=== PATIENT | male | born 1960 | race Caucasian/White ===

== ENCOUNTER 2017-05-23 22:31 | Inpatient (IN) | payer BC ==
--- NOTE | 2017-05-23 22:52 | ERNOTE ---
Abdominal HPI - General Chief Complaint: Abdominal Pain Time Seen by Provider: 05/23/17 22:42 Source: patient Exam Limitations: no limitations - Immun/Allergies/Home Medications Immunizatons: IMMUNIZATION HX Immunizations Up to Date Yes History of Influenza Vaccine Yes Hx Pneumococcal Vaccination Yes Allergies/Adverse Reactions: Allergies No Known Allergies Allergy (Unverified 05/23/17 22:38) Home Medications: HOME MEDICATIONS Omeprazole 40 mg PO DAILY 05/24/17 [Last Taken 05/23/17] - History of Present Illness Narrative: Pt had onset of abdominal pain over the weekend and was seen in the [place] [facility]. He had an abdominal u/s that showed gallbladder wall thickening and gallstone. He had increase in pain and an EGD was done yesterday showing esophagitis and a laith-carolina tear at the GEJ. He was placed on protonix and sent home with follow up for his gallbladder scheduled. Today he had increase in pain and presented to [place] ED. CT there showed cholecystitis with pericholecystic stranding and 4.[address] Graham from [place] [facility] contacted me requesting transfer. I contacted Dr. Obando and after getting the CT reading he agreed to accept the patient in transfer. Pt was transported her by [facility]. Timing: constant Quality: moderate Activities at Onset: none Modifying Factors - (Improves): Present: analgesics Modifying Factors - (Worsens): Present: eating Associated Symptoms: Present: nausea, vomiting Prior Abdominal Problems: Present: none Prior Treatment: Present: recently seen, treated by physician Review of Systems - Review of Systems Constitutional: Present: fatigue EYE: Present: no symptoms reported ENT: Present: no symptoms reported Respiratory: Absent: shortness of breath Cardiology: Absent: chest pain Gastrointestinal/Abdominal: Present: See HPI, eating less Genitourinary: Present: no symptoms reported Musculoskeletal: Present: no symptoms reported Skin: Present: no symptoms reported Neurological: Present: no symptoms reported Endocrine: Present: excessive sweating Hematologic/Lymphatic: Present: no symptoms reported Psych: Present: no symptoms reported - Patient's Past Medical History Patient History - Medical: No pertinent hx Patient History - Cardiac/Respiratory: No pertinent hx Patient History - Cancer: No Hx of Cancer Patient History - Surgical Procedures: Other Patient History - Other: None - Family History Mother Family History - Medical: Family History - Cardiac/Respiratory: CHF Father Family History - Medical: Family History - Cardiac/Respiratory: Myocardial Infarction - Social History Living Situations: home Psych History: No pertinent hx Smoking Status: Light tobacco smoker Alcohol Use: none Drug Use: none - Immunizations Immunizations Up to Date: Yes Hx Pneumococcal Vaccination: Yes History of Influenza Vaccine: Yes Physical Exam - Physical Exam General Appearance: Present: wd/wn, alert, no apparent distress Head Exam: Present: normal inspection, no evidence of injury Neck: Present: normal inspection, nontender Respiratory: Present: no respiratory distress, no accessory muscle use, lungs clear Cardiovascular/Chest: Present: regular rate, rhythm, no murmur Gastrointestinal/Abdominal: Present: soft, tenderness - epigastric and RUQ , abnormal bowel sounds - hypoactive. Absent: distended, guarding, rebound Extremity Exam: Present: normal inspection, normal range of motion Neurological Exam: Present: alert, oriented, normal mood/affect, no motor/ sensory deficits Skin Exam: Present: normal color, warm/dry Lymphatic Exam: Present: no adenopathy ED Progress - Vital Signs Patient's Vital Signs:: I have reviewed the patient's vital signs. Vital Signs: Vital Signs 05/23/17 22:32 Temperature 36.5 C Pulse Rate 78 Respiratory 14 Rate Blood Pressure 152/97 O2 Sat by Pulse 100 Oximetry - Progress/Reassessment Chief Complaint: Abdominal Pain Progress Note-Subjective: 05/23/17 22:[address] Obando he will come see the patient in the ED. Dr. Obando saw the patient in the ED and admitted the patient to med/surg. Departure Clinical Impression: Acute calculous cholecystitis - Departure Disposition: [facility] Condition: Fair
[2017-05-23] MEDS ORDERED: MORPHINE SULFATE 4 MG/ML SYRG IV PRN (23:56)
[2017-05-23] MEDS ORDERED: oxyCODONE HCL/ACETAMINOPHEN 1 TAB TABLET PO PRN (23:56)
[2017-05-23] MEDS ORDERED: ONDANSETRON HCL/PF 2 MG/ML VIAL IV PRN (23:56)
[2017-05-24] MEDS ORDERED: METOCLOPRAMIDE HCL 5 MG/ML VIAL IV ONE (00:02)
[2017-05-24] MEDS ORDERED: PANTOPRAZOLE SODIUM 40 MG/100 ML PIGGYBACK IV ONE (00:17)
[2017-05-24] MEDS ORDERED: PHENTOLAMINE MESYLATE 5 MG/ML VIAL ONE (00:18)
[2017-05-24] MEDS: PANTOPRAZOLE SODIUM 40 MG in NORMAL SALINE 100 ML IV SCH (00:28)
[2017-05-24] MEDS: RINGER'S SOLUTION,LACTATED 1,000 ML IV PRN ×4 (01:27→23:29)
[2017-05-24] MEDS: CEFOXITIN SODIUM 2 GM in DEXTROSE 5 % IN WATER 100 ML IV SCH ×6 (01:43→16:15)
[2017-05-24] MEDS ORDERED: MORPHINE SULFATE 2 MG/ML DISP.SYRIN IV PRN (07:17)
--- NOTE | 2017-05-24 08:01 | HP ---
Chief Complaint - Chief Complaint Date of Service: 05/23/17 Time of Service: 22:45 Chief Complaint: CHOLELITHIASIS AND CHOLECYSTITIS History of Present Illness: He started having pain suddenly on 05/18/2017. The pain was epigastric and right upper quadrant in location. It came on suddenly and became quite intense. He had multiple episodes of vomiting. The pain went away after several hours. He felt okay on 05/19/2017 and 05/20/2017 but he was eating less. On 05/21/2017 his pain returned, he also developed coffee-ground emesis, and he presented to the emergency room at [facility] where he was found to have a heme positive stool. Gallbladder ultrasound revealed thickened wall and stone. He was given Protonix and scheduled for an EGD which was performed on 05/22/2017. He was found to have a superficial gastric erosion. A healing Pili-Canchola tear. He was given a prescription for omeprazole and scheduled to see Dr. Davis in [place] next week for follow-up. This afternoon his pain returned, became severe, so he went to the emergency room at [facility] again. CBC and liver function studies, amylase/lipase are within normal limits. CT scan of the abdomen demonstrates acute cholecystitis with a large gallstone. There is no surgeon at that institution so he was transferred here for further care. He has never had pain of this nature before. There is no family history of gallbladder disease. He does not see a physician regularly and takes no regular medications. - Patient's Past Medical History Patient History - Medical: No pertinent hx Patient History - Cardiac/Respiratory: No pertinent hx Patient History - Cancer: No Hx of Cancer Patient History - Surgical Procedures: Other Patient History - Other: None - Family History Mother Family History - Medical: Family History - Cardiac/Respiratory: CHF Father Family History - Medical: Family History - Cardiac/Respiratory: Myocardial Infarction - Social History Living Situations: home Psych History: No pertinent hx Smoking Status: Light tobacco smoker Have you smoked in the past 12 months: Yes Alcohol Use: none Drug Use: none - Immunizations Immunizations Up to Date: Yes Hx Pneumococcal Vaccination: Yes History of Influenza Vaccine: Yes Review Of Systems (GEN) - Review of Systems Generalized/Overall Review: Present: Weakness. Absent: Chills, Fever EENTM: Present: Other - Dry mouth Respiratory: Absent: Cough, Shortness of Breath Cardiac: Present: Other - He has not had an EKG for about 6 years. He walks a lot and can perform daily chores and activities and go hunting without any chest pain. 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 Neurological: Present: No Symptoms Reported Skin: Present: No Symptoms Reported Immunizations: IMMUNIZATION HX Immunizations Up to Date Yes History of Influenza Vaccine Yes Hx Pneumococcal Vaccination Yes Allergies/Adverse Reactions: Allergies Allergy/AdvReac Type Severity Reaction Status Date / Time No Known Allergies Allergy Unverified 05/23/17 22:38 Home Medications: HOME MEDICATIONS RX: Omeprazole 40 mg PO DAILY 05/24/17 [Last Taken 05/23/17] Exam - Exam Vital Signs: Vital Signs - Last Taken Temp 36.8 C 05/24/17 01:09 Pulse 83 05/24/17 01:09 Resp 18 05/24/17 01:09 BP 163/83 05/24/17 01:09 Pulse Ox 99 05/24/17 01:09 Constitutional: Present: Alert, Oriented x3, Cooperative, Well nourished, Moderate distress ENT Exam: Present: normal ENT inspection, other - Mallampati 4 airway Eye Exam: bilateral eye: normal inspection Neck: Present: full range of motion, normal inspection Respiratory: Present: normal breath sounds, no respiratory distress Cardiovascular/Chest: Present: normal peripheral pulses, regular rate, rhythm, no murmur Peripheral Pulses: dorsalis-pedis (R): 4+, dorsalis-pedis (L): 4+, radial (R): 4 +, radial (L): 4+ Abdomen: Present: other - Soft, right upper quadrant tenderness without guarding or rebound Skin Exam: Present: diaphoresis Neurologic: Present: beater out II-XII nml as tested, no motor/sensory deficits Appearance: Present: appropriate appearance, appropriate insight Eye contact: Present: cooperative, good eye contact, normal speech Thoughts: Present: normal thought pattern Diagnostic Studies: Lab reports from [facility] OR on the scan ER record. EKG in the emergency room here is normal. CT scan and ultrasound from [facility] have been imported. Assessment/Plan - Assessment/Plan (1) Acute calculous cholecystitis Assessment: A pamphlet on gallbladder disease and gallbladder surgery was reviewed with him and his and given to them. The benefits, risks, and possible complications of gallbladder surgery were outlined including the possibility of open operation. The patient will be placed in acute care with SCDs for VTE prophylaxis, IV antibiotics, IV fluids, and chlorhexidine wipes preop. Tentatively scheduled for cholecystectomy later today. Problem: Acute
[2017-05-24] MEDS ORDERED: FLU VACC QS2017-18(6MOS UP)/PF 60 MCG/0.5 ML SYRINGE IM ONE (09:00)
[2017-05-24] MEDS ORDERED: RINGER'S SOLUTION,LACTATED 1,000 ML IV ONE ×5 (10:45→14:30)
[2017-05-24] MEDS ORDERED: ceFAZolin SODIUM 1 GM VIAL IV ONE ×2 (11:15)
[2017-05-24] MEDS ORDERED: BUPIVACAINE HCL/EPINEPHRINE 50 ML VIAL IJ ONE ×2 (11:20)
[2017-05-24] MEDS ORDERED: MUPIROCIN 22 APPL TUBE TP ONE (15:05)
[2017-05-24] MEDS ORDERED: HYDROmorphone HCL IN 0.9% NACL 50 ML CARTRIDGE IV PRN (15:33)
[2017-05-24] MEDS ORDERED: BISACODYL 5 MG TABLET.DR PO ONE (19:07)
[2017-05-24] MEDS ORDERED: BISACODYL 10 MG SUPP.RECT RC ONE (19:07)
--- NOTE | 2017-05-24 19:07 | OR ---
Operative Report - Dictated Report Narrative: OPERATIVE REPORT DATE OF OPERATION: 05/24/2017 PREOPERATIVE DIAGNOSIS: Cholelithiasis and acute cholecystitis POSTOPERATIVE DIAGNOSIS: Severe, gangrenous acute cholecystitis with cholelithiasis OPERATION: Attempted laparoscopic converted to open cholecystectomy. (Subtotal removal of the gallbladder with removal of single large gallstone and oversewing the gallbladder stump) SURGEON: Escobar Obando MD ANESTHESIA: GenPriyanka David CRNA INDICATIONS FOR PROCEDURE: The patient is a 57-year-old male who began having right upper quadrant abdominal pain on 05/18/2017. He was seen in the emergency room at [facility] on 05/21/2017 where he was found to have gallstones on ultrasound. He was sent home and had an EGD at [facility] on 05/22/2017 with the findings of gastric erosions and healing Pili-Canchola tear. He was started on omeprazole and scheduled for follow-up with a local physician next week. On however 05/23/2017 he returned to the emergency room at [facility] with worse pain. A CT scan revealed acute cholecystitis with a large gallstone. CBC and liver function studies, amylase/lipase were normal. There is no surgeon at that facility. He was transferred here for further care. FINDINGS: Severe gangrenous acute cholecystitis with single large gallstone. Severe inflammation precluding safe laparoscopic removal of the gallbladder and necessitating conversion to open procedure. Successful removal of the majority of the gallbladder and single large stone with oversewing of the gallbladder neck. Extremely difficult operation lasting from 1120 through 1505 NARRATIVE OF PROCEDURE: The patient was identified preoperatively and prior to the administration of anesthetic a multidisciplinary timeout was observed. The patient was placed supine, SCDs applied, and 2 g of intravenous Ancef administered. General endotracheal anesthetic was administered. The patient's abdomen was prepped with Betadine solution and a generous operating field outlined with 4 sterile towels so as to allow conversion to open operation if needed. The remainder the patient was covered with a sterile disposable drape. A transverse infraumbilical skin incision was made. Dissection was carried along the umbilical stalk until the fascia of the linea alba was identified. This was elevated and incised. The peritoneum was then elevated and incised to allow entry into the abdomen under direct vision. Stay sutures of 0 Vicryl were placed, a Velazquez cannula inserted, and the abdomen insufflated with CO2. The laparoscopic camera was introduced and the abdomen briefly explored. There was adherent omentum over the dome of the right lobe of the liver in the expected location of the gallbladder. The liver itself appeared grossly normal. Those portions of the stomach, colon, omentum, and small bowel visualized appeared normal. Next under direct vision 3 additional working ports were inserted through separate skin incisions, one subxiphoid and one in the right upper quadrant and one in the right flank. The omentum over the right lobe of the liver was gradually retracted inferiorly, however was densely adherent to the expected location of the fundus of the gallbladder. The omentum was approached laterally and medially and, with the use of forceps and hydrostatic dissection, the tip of a frankly necrotic gallbladder exposed. The dense adhesions precluded further development of the gallbladder and decision was made to convert to open operation. Points were located by palpation to allow marking the incision site on the anterior abdominal wall to provide best exposure. The working ports were then withdrawn under direct vision to ensure entry site hemostasis. The Velazquez cannula was removed and the pneumoperitoneum allowed to escape. The Vicryl sutures at the umbilicus were tied and the skin incisions were approximated with interrupted vertical mattress sutures of 4-0 nylon. The right upper quadrant entry site was left open for anticipated drain placement. A right subcostal skin incision was then made where previously marked and dissection carried through subcutaneous tissue until the fascia of the anterior rectus sheath was encountered. The rectus muscle was then elevated over a clamp and divided with electrocautery. The posterior rectus sheath and peritoneum were then incised to allow entry into the abdomen under direct vision. A Bookwalter self-retaining retractor was placed. A plane could be developed by blunt dissection around the inflamed gallbladder down to below the large stone. The tissue was necrotic and very malodorous. The inflammation at the gallbladder neck was very severe with dense adhesions to the duodenum. Previously an nasogastric tube had not been placed due to the patient's history of healing Pili-Canchola tear, however distention of the stomach and duodenum interfered with exposure so a nasogastric tube was placed without difficulty into the stomach and positioned by direct palpation with resulting decompression of the stomach and the duodenum. Even with this increased exposure, the dense adhesions between the stomach, duodenum and neck of the gallbladder precluded further safe dissection. Accordingly the gallbladder was opened and the stone was delivered along with a large amount of clotted blood and malodorous material. Even under direct vision from within the gallbladder the distal portion of the gallbladder neck and cystic duct could not be safely dissected. The necrotic gallbladder was then amputated at the level of the neck. The cystic artery was encountered at this juncture and required direct pressure and then clipping under direct vision to secure the vessel. The area was irrigated with warm saline and was seen to be hemostatic. There was no evidence of bile leaking from the interior of the gallbladder neck indicating cystic duct obstruction. The area was again copiously irrigated with warm saline and carefully inspected. Again there was no evidence of bile leak from either the liver bed or the stump of the gallbladder neck and the area was hemostatic. There was a denuded area of the duodenal sweep. This was oversewn with inverting serosal sutures of 4-0 Vicryl which were additionally reinforced with an additional layer of inverting 4-0 Vicryl sutures and then covered with omentum. The right upper quadrant and area over the liver was again irrigated with warm saline and suctioned clean with confirmation of hemostasis and no evidence of bile leak. The previously bluntly dissected omentum was replaced over the liver bed and after receiving a correct sponge needle and instrument count attention was turned to closing the abdomen. A 7 Icelandic round Fabian- Watts drain was placed along the gallbladder fossa with care to avoid direct connection to the neck of the gallbladder or duodenum. It was brought out through the right upper quadrant port site and secured to the skin with a 2-0 nylon suture. The peritoneum was then approximated with a running suture of 20 antibiotic-containing Vicryl. The posterior rectus sheath was approximated with interrupted sutures of 0 Vicryl. The anterior rectus sheath was approximated with interrupted sutures of 0 Vicryl. The skin was secured with alexsander. The operative sites were washed and dried. The right lateral port site was dressed with mupirocin ointment and a large Band-Aid. The umbilical incision was dressed with mupirocin ointment, 2 x 2's, and Medipore tape. The subcostal incision, subxiphoid port site, and DARREL drain site were dressed with mupirocin ointment, 4 x 4's and Medipore tape. The operative procedure was terminated at this point. The patient tolerated the anesthetic and procedure well without complication. He received 3600 mL of IV fluids. A Palomo catheter was placed and there was 250 mL urine produced. The gallbladder and stone were submitted to pathology. 0.5% Marcaine with epinephrine was used for local anesthetic infiltration. The patient was transferred to the recovery room awake , extubated, and in stable condition. Reviewed and electronically signed
[2017-05-25] MEDS: PANTOPRAZOLE SODIUM 40 MG in NORMAL SALINE 100 ML IV SCH (02:12)
[2017-05-25] MEDS: CEFOXITIN SODIUM 2 GM in DEXTROSE 5 % IN WATER 100 ML IV SCH ×6 (02:43→17:04)
[2017-05-25 05:58] LABS: Mean Cell Volume 89.2 fl (78-100); Mean Corpuscular Hemoglobin 30.5 pg (27-31); Mean Corpuscular Hgb Conc 34.2 g/dl (32-36); Mean Platelet Volume 8.9 fl (6.0-9.5); Platelet Count 146 K/mm3 (150-450); Red Blood Count 2.49 M/mm3 (4.7-6.0); Red Cell Distribution Width 13.5 % (11.5-14.0); White Blood Count 8.6 K/mm3 (4.0-10.5)
[2017-05-25 06:12] LABS: Albumin * 2.2 gm/dl (3.4-5.0); Anion Gap 8.6 mmol/L (6.8-13.8); BUN/Creatinine Ratio 7.9 (9.0-21.6); Bilirubin, Total 0.6 mg/dL (0.0-1.1); Ca. Corrected For Albumin 8.9 mg/dL (8.4-10.2); Calcium * 7.8 mg/dL (7.9-10.9); Carbon Dioxide 28.4 mmol/L (24-32.6); Total Protein 5.3 gm/dL (6.2-8.2)
[2017-05-25 06:39] LABS: Hematocrit 22.2 % (42.0-52.0); Hemoglobin 7.6 gm/dL (13.5-18.0); Total Cells Counted 100
[2017-05-25 06:41] LABS: Band 5 % (0-2.0); Lymphocyte 11 % (20-51); Monocyte 1 % (0-9); Neutrophil 83 % (42-75); Neutrophil # 7.1 K/mm3 (1.3-6.0); Platelet Estimate Normal (NORMAL); RBC Morphology Normal (NORMAL)
[2017-05-25] MEDS: RINGER'S SOLUTION,LACTATED 1,000 ML IV PRN ×2 (07:02→14:16)
--- NOTE | 2017-05-25 17:57 | PN ---
Dictated Progress Note - Date and Time Seen: Date: 05/25/17 Time: 17:55 - 2nd visit - Progress Note Narrative: Vital Signs - Last Taken Temp 36.8 C 05/25/17 10:54 Pulse 101 H 05/25/17 10:54 Resp 18 05/25/17 10:54 BP 112/63 05/25/17 10:54 Pulse Ox 95 05/25/17 13:38 Abnormal/Pending Laboratory Last 24 HRS 05/25/17 05/25/17 05:25 05:25 RBC 2.49 L Hgb 7.6 L* Hct 22.2 L* Plt Count 146 L Neutrophils % (Manual) 83 H Band Neuts % (Manual) 5 H Lymphocytes % (Manual) 11 L Neutrophils # (Manual) 7.1 H Lymphocytes # (Manual) 0.9 L Est GFR (Non-Af Amer) 55 L BUN/Creatinine Ratio 7.9 L Calcium 7.8 L Alkaline Phosphatase 42 L Total Protein 5.3 L Albumin 2.2 L POD#1 Open cholecystectomy VS stable. Pain tolerable. DARREL output decreasing. Has been OOB. Dressing dry. Not much from NG Will cycle clamp NG with clear liquid trial, decrease IVF's Encourage pulmonary toilet
[2017-05-25] MEDS ORDERED: oxyCODONE HCL/ACETAMINOPHEN 1 TAB TABLET PO PRN (21:48)
[2017-05-26] MEDS: CEFOXITIN SODIUM 2 GM in DEXTROSE 5 % IN WATER 100 ML IV SCH ×6 (00:29→16:07)
[2017-05-26] MEDS: RINGER'S SOLUTION,LACTATED 1,000 ML IV PRN (00:32)
[2017-05-26] MEDS: PANTOPRAZOLE SODIUM 40 MG in NORMAL SALINE 100 ML IV SCH (01:00)
[2017-05-26 13:23] LABS: Mean Cell Volume 88.6 fl (78-100); Mean Corpuscular Hemoglobin 30.6 pg (27-31); Mean Corpuscular Hgb Conc 34.5 g/dl (32-36); Mean Platelet Volume 8.3 fl (6.0-9.5); Platelet Count 157 K/mm3 (150-450); Red Blood Count 2.29 M/mm3 (4.7-6.0); Red Cell Distribution Width 13.1 % (11.5-14.0); White Blood Count 10.4 K/mm3 (4.0-10.5)
[2017-05-26 13:32] LABS: Hematocrit 20.3 % (42.0-52.0)
[2017-05-26 13:33] LABS: Total Cells Counted 100
[2017-05-26 13:52] LABS: Lymphocyte 8 % (20-51); Monocyte 10 % (0-9); Neutrophil 82 % (42-75); Neutrophil # 8.5 K/mm3 (1.3-6.0)
[2017-05-26 13:53] LABS: Platelet Estimate Normal (NORMAL); RBC Morphology Normal (NORMAL)
--- NOTE | 2017-05-26 17:59 | PN ---
Dictated Progress Note - Date and Time Seen: Date: 05/26/17 Time: 17:58 - Progress Note Narrative: Vital Signs - Last Taken Temp 37.2 C 05/26/17 17:45 Pulse 94 05/26/17 17:45 Resp 14 05/26/17 17:45 BP 116/68 05/26/17 17:45 Pulse Ox 99 05/26/17 17:45 Abnormal/Pending Laboratory Last 24 HRS 05/26/17 05/26/17 13:15 13:15 RBC 2.29 L Hgb 7.0 L* Hct 20.3 L* Neutrophils % (Manual) 82 H Lymphocytes % (Manual) 8 L Monocytes % (Manual) 10 H Neutrophils # (Manual) 8.5 H Lymphocytes # (Manual) 0.8 L Crossmatch See Detail POD#2 open cholecystectomy for severe acute cholecystitis with cholelithiasis VS normal, single elevation of temp after pain med/laying down. Minimal NG output and tolerated trial clamp. Has been OOB. DARREL output decreasing. Dressings dry. Pain is controlled. Hgb did decline 7.6 to 7.0 and given lower Sa02's and unknown coronary status will transfuse. Encourage pulmonary toilet. Hold to liquids today.
[2017-05-27] MEDS: PANTOPRAZOLE SODIUM 40 MG in NORMAL SALINE 100 ML IV SCH (00:44)
[2017-05-27 00:55] LABS: Hematocrit 24.1 % (42.0-52.0); Hemoglobin 8.3 gm/dL (13.5-18.0)
[2017-05-27] MEDS: CEFOXITIN SODIUM 2 GM in DEXTROSE 5 % IN WATER 100 ML IV SCH ×4 (01:04→09:47)
[2017-05-27 11:23] VITALS: BP 138/78
--- NOTE | 2017-05-27 12:42 | DS ---
(1) Acute calculous cholecystitis Problem: Resolved Description of Stay: He underwent laparoscopic, converted to open cholecystectomy for severe acute cholecystitis with single large stone. Reviewved pre and ost op Mefoxin and SCD' s/early ambulation for VTE prophylaxis. Lovenox not used due to bleeding concerns. NG tube and RUQ DARREL drain placed. Initially had armas catheter for U/O monitoring.VS remained normal. Minimal NG and DARREL output. tolerated trial clamping of NG and it was removed with diet advancement. Pain initially controlled with MEAL COOK then po Percocet. Received 2 units of PRBC's due to fall in Hgb with symptoms and unknown coronary status. By POD #2 he was on regular diet and OOB without assist. DARREL removed. Incisions clean and healing, and his was instructed on dressing changes. Home, no lifting with phone #'s to call for questions or concerns and office appointment will be made for 06/04/17. Procedures Performed: none - laparoscopic, converted to open cholecystectomy Discharge Disposition: Home self care Disposition: Home self-care Condition: Good Discharge Activity: Activity as tolerated, No Lifting Discharge Diet: General/regular food Problem Oriented Discharge Instructions to Patient/Family: Open Cholecystectomy Complete Home Medications List: Complete Home Medication List: Omeprazole 40 mg PO DAILY 05/24/17 oxyCODONE HCL/ACETAMINOPHEN [Percocet 5 MG/325 MG] 1 tab PO Q4H PRN 7 Days #30 tablet 05/27/17
[2017-05-27] MEDS ORDERED: PANTOPRAZOLE SODIUM 40 MG in NORMAL SALINE 100 ML IV SCH (23:45)
== END 2017-05-27 13:30 | disposition home or self-care (01) | DRG 416 ==
LOC: ER 22:31 → MS 23:38 → UNDOADMIN 05-24 00:28 → MS 05-24 00:28 → UNDOADMIN 05-24 00:38
PROVIDERS: ADMIT Surgery; ATTEND Surgery
PROC: 0FJ44ZZ Inspection of Gallbladder, Percutaneous Endoscopic Approach (ICD-10-PCS; 2017-05-24)
PROC: 0DNU0ZZ Release Omentum, Open Approach (ICD-10-PCS; 2017-05-24)
PROC: 0FT40ZZ Resection of Gallbladder, Open Approach (ICD-10-PCS; principal; 2017-05-24 11:00)
PROC: 30263N1 (ICD-10-PCS; 2017-05-26)
DX: K80.12 Calculus of gallbladder with acute and chronic cholecystitis without obstruction (principal); K82.8 Other specified diseases of gallbladder; F17.210 Nicotine dependence, cigarettes, uncomplicated; Z23 Encounter for immunization
CPT/HCPCS: 36415; 47600; 80053; 85007; 85014; 85018; 85025; 86850; 86900; 88304; 90686; 93005; 99284; G0008; P9016